=== PATIENT | male | born 1985 | race Two or more races ===

== ENCOUNTER 2022-06-23 16:25 | Emergency (ER) | payer SELFPAY ==
[~2022-06-23] VITALS: Ht 175.3 cm; Wt 90.9 kg
[2022-06-23] MEDS ORDERED: LIDOCAINE 1% (LOCAL ANESTH.) PF 5ml SDV ID ONE (17:15)
[2022-06-23 19:12] VITALS: BP 120/78
== END 2022-06-23 19:35 | disposition home or self-care (01) ==
LOC: EDBD 16:25 → ER 16:25
DX: S01.01XA Laceration without foreign body of scalp, initial encounter (principal); F07.81 Postconcussional syndrome; W19.XXXA Unspecified fall, initial encounter; Y93.89 Activity, other specified; Y92.89 Other specified places as the place of occurrence of the external cause; Y99.8 Other external cause status
CPT/HCPCS: 12002; 70450; 72125

== ENCOUNTER 2022-07-03 19:06 | Emergency (ER) | payer MEDICAID ==
[~2022-07-03] VITALS: Ht 172.7 cm; Wt 94.0 kg
[2022-07-03 19:06] VITALS: BP 125/85
== END 2022-07-04 00:19 | disposition left against medical advice (07) ==
LOC: ER 19:06
DX: S01.01XD Laceration without foreign body of scalp, subsequent encounter (principal); Z53.21 Procedure and treatment not carried out due to patient leaving prior to being seen by health care provider; X58.XXXD Exposure to other specified factors, subsequent encounter